=== PATIENT | male | born 1985 | race Caucasian/White ===

== ENCOUNTER 2016-11-01 13:01 | Emergency (ER) | payer OTHER ==
[2016-11-01 13:49] LABS: BILIRUBIN NEGATIVE (NEGATIVE); BLOOD NEGATIVE Ery/uL (NEGATIVE); CLARITY CLEAR (CLEAR); COLOR YELLOW (YELLOW); GLUCOSE (U) NORMAL (NORMAL); KETONE (U) NEGATIVE (NEGATIVE); LEUKOCYTES NEGATIVE Leu/uL (NEGATIVE); NITRITE NEGATIVE (NEGATIVE); PROTEIN 1+ mg/dL (NEGATIVE); SPECIFIC GRAVITY 1.025 (1.001-1.030); UROBILINOGEN 0.2 mg/dL (0.2-1.0)
[2016-11-01 13:59] LABS: URINARY WBC RARE
[2016-11-01 14:00] LABS: MUCOUS LARGE
[2016-11-01 14:13] LABS: BASOPHIL 0.3 % (0-2); EOSINOPHIL 3.1 % (0-5); HCT 43.8 % (42.0-52.0); HGB 14.8 g/dl (13.2-18.0); LYMPHOCYTE 15.7 % (15-48); MCH 28.4 pg (25.0-31.0); MCHC 33.8 g/dL (32.0-36.0); MCV 84.1 fL (78.0-100.0); MONOCYTE 3.2 % (0-12); MPV 9.6 fL (6.0-9.5); NEUTROPHIL 77.7 % (41-80); PLT 268 K/uL (150-400); RBC 5.21 M/uL (4.70-6.00); RDW 13.4 % (11.5-14.0); WBC 6.9 K/uL (4.0-10.5)
[2016-11-01 14:33] LABS: ALBUMIN 4.6 g/dL (3.5-5.0); BILIRUBIN - TOTAL 0.2 mg/dL (0.1-1.0); GLOBULIN (CALCULATION) 2.3 g/dL (2.2-4.2); POTASSIUM 4.3 mmol/L (3.5-5.1); TOTAL PROTEIN 6.9 g/dL (6.4-8.3)
[2016-11-01 15:01] LABS: AMPHETAMINES POSITIVE (NEGATIVE); BARBITURATES NEGATIVE (NEGATIVE); BENZODIAZEPINES NEGATIVE (NEGATIVE); COCAINE NEGATIVE (NEGATIVE); MARIJUANA (THC) NEGATIVE (NEGATIVE); METHADONE NEGATIVE (NEGATIVE); TRICYCLIC ANTIDEPRESSANT NEGATIVE (NEGATIVE)
== END 2016-11-01 18:55 | disposition home or self-care (01) ==
LOC: FER 13:01
PROVIDERS: Nurse Practitioner
DX: R45.851 Suicidal ideations (principal); F20.9 Schizophrenia, unspecified; Z91.5 Personal history of self-harm; Z79.899 Other long term (current) drug therapy
CPT/HCPCS: 36415; 80053; 80305; 81001; 85025; 99285; G0480

== ENCOUNTER 2021-02-09 09:01 | Emergency (ER) | payer OTHER | END 2021-02-09 10:00 | disposition home or self-care (01) | LOC: FER 09:01 | DX: R00.2 Palpitations (principal); F17.210 Nicotine dependence, cigarettes, uncomplicated | CPT/HCPCS: 93005 ==